=== PATIENT | male | born 1980 | race Caucasian/White ===

== ENCOUNTER 2018-04-13 08:02 | Day surgery (SDC) | payer OTHER ==
[2018-04-13] MEDS ORDERED: MIDAZOLAM 1 MG/ML 2 ML INJ (10:39)
[2018-04-13] MEDS ORDERED: LIDOCAINE 2% (SDV) 5 ML INJ (10:39)
[2018-04-13] MEDS ORDERED: PROPOFOL 20 ML (10:39)
[2018-04-13] MEDS ORDERED: SUCCINYLCHOLINE CHLORIDE 100 MG/5 ML SYG IV (10:39)
[2018-04-13] MEDS ORDERED: ROPIVACAINE 0.5 % 30 ML VIAL (11:11)
[2018-04-13] MEDS ORDERED: SOD CHLORIDE 0.9% 1,000 ML IV (11:22)
[2018-04-13] MEDS ORDERED: OXYCODONE/ACETAMINOPHEN (5/325) TAB PO ×4 (11:30→15:00)
[2018-04-13] MEDS ORDERED: morphine 2 MG INJ IV (11:30)
[2018-04-13] MEDS ORDERED: ONDANSETRON 4 MG INJ IV ×2 (11:30→15:00)
[2018-04-13] MEDS ORDERED: DEXAMETHASONE 4 MG/ML 1 ML INJ (11:47)
[2018-04-13] MEDS ORDERED: ONDANSETRON 4 MG INJ (11:47)
[2018-04-13] MEDS ORDERED: FAMOTIDINE 20 MG INJ (11:47)
[2018-04-13] MEDS ORDERED: CEFAZOLIN 1 GM INJ ×2 (11:47→14:12)
[2018-04-13] MEDS: ROPIVACAINE 0.5 % 30 ML VIAL (12:29)
[2018-04-13] MEDS: POVIDONE IODINE 10% 28.4 GM OINT (12:31)
[2018-04-13] MEDS ORDERED: MEPERIDINE 25 MG INJ IV (15:00)
[2018-04-13] MEDS ORDERED: PROCHLORPERAZINE 10 MG INJ IV (15:00)
[2018-04-13] MEDS ORDERED: FENTAnyl 50 MCG/ML VIAL IV ×3 (15:00)
[2018-04-13] MEDS ORDERED: hydrALAzine 20 MG INJ IV (15:00)
[2018-04-13] MEDS ORDERED: EPHEDrine SULFATE 50 MG/5 ML SYG IV (15:00)
[2018-04-13] MEDS ORDERED: HYDROmorphONE (0.2 MG/ML) 10ML SYG IV ×3 (15:00)
[2018-04-13] MEDS ORDERED: DIPHENHYDRAMINE 50 MG INJ IV (15:00)
== END 2018-04-13 16:44 | disposition home or self-care (01) ==
LOC: SDS 08:02
DX: M25.811 Other specified joint disorders, right shoulder (principal); M75.101 Unspecified rotator cuff tear or rupture of right shoulder, not specified as traumatic; M19.011 Primary osteoarthritis, right shoulder; S43.491D Other sprain of right shoulder joint, subsequent encounter; X58.XXXD Exposure to other specified factors, subsequent encounter
CPT/HCPCS: 29822